=== PATIENT | female | born 1940 | race Caucasian/White ===

== ENCOUNTER 2018-05-08 16:32 | Inpatient (IN) ==
[2018-05-11] MEDS ORDERED: *HR* HYDROcodone/Acet 5/325 mg TABLET PO PRN (11:47)
--- NOTE | 2018-05-11 12:47 | Internal Med History&Physical ---
Date of Encounter: 05/11/18 Time of Encounter: 12:45 Assessment and Plan (1) CVA (cerebral vascular accident) Current visit: Yes Status: Acute PT/OT and ST to eval and treat. will follow progress. follow up with neuro as scheduled. continue ASA and statin. Qualifiers: CVA mechanism: unspecified Qualified Code(s): I63.9 - Cerebral infarction, unspecified (2) Right hand fracture Current visit: Yes Status: Acute cast intact. follow up with ortho as scheduled. Qualifiers: Encounter type: initial encounter Fracture type: closed Qualified Code(s) : S62.91XA - Unspecified fracture of right wrist and hand, initial encounter for closed fracture (3) Dementia Current visit: Yes Status: Acute assist with ADL's. therapy to eval congniton. Qualifiers: Dementia type: unspecified type Dementia behavioral disturbance: without behavioral disturbance Qualified Code(s): F03.90 - Unspecified dementia without behavioral disturbance Internal Medicine - H&P: HPI Admitted From: Intrahospital Transfer Plans for Post Hospital Care: Home History of present illness: Ms. Cast is a 77 year old female admitted to inpatient rehab unit for therapy s/p CVA and right hand fracture from fall. past medical history includes: TIA, dementia and recent UTI. plan to discharge to home with boyfriend. HPI unobtainable d/t confusion. hx of dementia. denies pain. Past Med Surg Social Fam HX - Past Medical History Medical history: no medical history Psychiatric history: no psych history - Past Surgical History Surgical History: no surgical history - Social History Smoking Status: Current every day smoker Smokeless Tobacco Status: No Alcohol use: none Drug use: none - Family History Mother Living Status: Internal Medicine - H&P: Meds Acetaminophen [Tylenol] 650 mg PO Q6HR PRN tablet 05/11/18 [Rx] Aspirin 81 mg PO DAILY tab.chew 05/11/18 [Rx] Atorvastatin [Lipitor] 20 mg PO HS tablet 05/11/18 [Rx] HYDROcodone/Acet 5/325 mg [[place] 5-325 mg] 1 tab PO Q6HR PRN 2 Days #8 tablet [Rx] 3 Allergy/AdvReac Type Severity Reaction Status Date / Time No Known Allergies Allergy Verified 05/04/18 18:08 ROS unobtainable: due to mental status All Systems PM: A 10-system review of systems was performed and is negative for pertinent findings except as documented above in the HPI. - Constitutional Constitutional: no chills, no fever(s), no night sweats - EENT Eyes: no change in vision, no discharge, no pain, no photophobia Ears: no ear discharge, no ear pain, no tinnitus Nose, mouth and throat: no dysphagia, no nasal discharge, no neck pain, no sore throat - Cardiovascular Cardiovascular ROS IM: no chest pain, no diaphoresis, no dyspnea, no lightheadedness, no palpitations, no syncope - Respiratory Respiratory: no cough, no dyspnea, no wheezing, no excessive phlegm production - Gastrointestinal Gastrointestinal: no abdominal pain, no diarrhea, no hematemesis, no hematochezia, no melena, no nausea, no vomiting - Genitourinary Genitourinary: no change in urinary stream, no dysuria, no flank pain, no hematuria - Musculoskeletal Musculoskeletal ROS IM: no numbness, no tingling - Integumentary Integumentary IM: no rash, no unusual bruising - Neurological Neurological ROS: no confusion, no convulsions, no focal weakness, no numbness, no tingling, no tremor(s) - Hematologic/Lymphatic Hematologic/Lymphatic: no easy bruising - Constitutional Vitals: Temp Pulse Resp BP Pulse Ox 98.1 F 87 16 145/86 94 05/11/18 11:39 05/11/18 11:39 05/11/18 11:39 05/11/18 11:39 05/11/18 11:39 General appearance: Present: A&O X 1, pleasant, no acute distress - Head Head exam: Present: atraumatic, normocephalic - Eye Eye exam: Present: PERRL, conjuntiva pink, sclera anicteric Pupils: Present: PERRL - Neck Neck exam general surgery: Present: supple, trachea midline. Absent: lymphadenopathy - Respiratory Respiratory exam: Present: CTAB. Absent: accessory muscle use, rales, rhonchi, wheezes - Cardiovascular Cardiovascular exam: Present: RRR, +S1, +S2. Absent: diastolic murmur, gallop, rubs, systolic murmur - GI/Abdominal GI/Abdominal exam: Present: normal bowel sounds, soft, no peritoneal signs. Absent: distended, tenderness - Extremities Exam Extremities exam: Present: normal capillary refill, warm, radial pulses palpable and symmetrical. Absent: calf tenderness, cyanotic, pedal edema Additional comments: right wrist cast. - Neurological Exam Neurological exam: Present: CN II-XII intact, oriented X3, no focal deficits. Absent: pronater drift, facial droop, speech deficit - Skin Skin exam: Present: dry, intact
[2018-05-11] MEDS: *HR* Heparin 5,000 UNIT/ML VIAL SQ SCH (17:35)
[2018-05-12] MEDS: *HR* Heparin 5,000 UNIT/ML VIAL SQ SCH ×2 (04:49→18:24)
[2018-05-12 05:42] LABS: Basophils % 0.4 %; Eosinophils # 0.1 K/mcL (0.0-0.6); Eosinophils % 1.3 %; Hematocrit 40.1 % (35.3-44.9); Hemoglobin 13.7 g/dL (11.5-15.4); Immature Granulocytes % 0.2 % (0-4); Lymphocytes # 4.9 K/mcL (0.6-4.6); Lymphocytes % 51.2 %; Mean Corpuscular HGB Conc 34.2 g/dL (31.6-35.5); Mean Corpuscular Hemoglobin 29.8 pg (28.0-33.3); Mean Corpuscular Volume 87.4 fL (83.0-100.0); Neutrophils # 3.6 K/mcL (1.6-8.9); Platelet Count 230 K/mcL (140-400); Red Blood Count 4.59 M/mcL (3.82-4.97); Red Cell Distribution Width 12.8 % (11.5-14.5); Segmented Neutrophils % 36.9 %
[2018-05-12 05:43] LABS: INR 1.2; Prothrombin Time 13.2 Seconds (9.4-12.1)
[2018-05-12 05:46] LABS: Activated Partial Thrombo Time 34.8 Seconds (26.0-36.0)
[2018-05-12 05:57] LABS: BUN/Creatinine Ratio 20 (6-26); Blood Urea Nitrogen 17 mg/dL (8-23); Calcium 9.4 mg/dL (8.6-10.3); Carbon Dioxide 28 mEq/L (23-29); Chloride 105 mEq/L (98-107); Glucose 141 mg/dL (70-105); Osmolality,Calculated 292 (280-300); Potassium 3.5 mEq/L (3.5-5.1); Sodium 139 mEq/L (136-145); eGFR For African Americans > 60 (> 60); eGFR For Non-African Americans > 60 (> 60)
[2018-05-12] MEDS: Acetaminophen 325 MG TABLET PO PRN (10:19)
[2018-05-12] MEDS: Aspirin 81 MG TAB.CHEW PO SCH (10:19)
--- NOTE | 2018-05-12 12:50 | Internal Med Progress Note ---
Date of Encounter: 05/12/18 Time of Encounter: 12:48 - Assessment and plan (1) CVA (cerebral vascular accident) Current Visit: Yes Status: Acute Assessment and plan: no new neuro deficits. continue statin and ASA. f/u with neuro. Qualifiers: CVA mechanism: unspecified Qualified Code(s): I63.9 - Cerebral infarction, unspecified (2) Right hand fracture Current Visit: Yes Status: Acute Assessment and plan: continue cast. follow up with ortho. Qualifiers: Encounter type: initial encounter Fracture type: closed Qualified Code(s) : S62.91XA - Unspecified fracture of right wrist and hand, initial encounter for closed fracture (3) Dementia Current Visit: Yes Status: Acute Assessment and plan: assist with ADL's as necesary. Qualifiers: Dementia type: unspecified type Dementia behavioral disturbance: without behavioral disturbance Qualified Code(s): F03.90 - Unspecified dementia without behavioral disturbance - Time Spent With Patient less than 15 minutes - Subjective Interval history: pt confused, unable to participate in HPI. cooperative and participating with therapy. denies pain. - Constitutional Vitals: Temp Pulse Resp BP Pulse Ox 97.9 F 63 16 143/74 97 05/12/18 07:12 05/12/18 07:12 05/12/18 07:12 05/12/18 07:12 05/12/18 07:12 General appearance: Present: A&O X 1, pleasant, no acute distress - Head Head exam: Present: atraumatic, normocephalic - Eye Eye exam: Present: PERRL, conjuntiva pink, sclera anicteric Pupils: Present: PERRL - Neck Neck exam general surgery: Present: supple, trachea midline. Absent: lymphadenopathy - Respiratory Respiratory exam: Present: CTAB. Absent: accessory muscle use, rales, rhonchi, wheezes - Cardiovascular Cardiovascular exam: Present: RRR, +S1, +S2. Absent: diastolic murmur, gallop, rubs, systolic murmur - GI/Abdominal GI/Abdominal exam: Present: normal bowel sounds, soft, no peritoneal signs. Absent: distended, tenderness - Extremities Exam Extremities exam: Present: normal capillary refill, warm, radial pulses palpable and symmetrical. Absent: calf tenderness, cyanotic, pedal edema Additional comments: right wrist cast - Neurological Exam Neurological exam: Present: CN II-XII intact, oriented X3, no focal deficits. Absent: pronater drift, facial droop, speech deficit - Skin Skin exam: Present: dry, intact Internal Medicine: Result - Labs CBC & Chem 7: 05/12/18 05:05 05/12/18 05:05 Labs: Short CBC 05/12/18 Range/Units 05:05 WBC 9.6 (4.3-11.1) K/mcL Hgb 13.7 (11.5-15.4) g/dL Hct 40.1 (35.3-44.9) % Plt Count 230 (140-400) K/mcL Neutrophils # 3.6 (1.6-8.9) K/mcL BMP 05/12/18 05:05 Sodium 139 Potassium 3.5 Chloride 105 Carbon Dioxide 28 BUN 17 Creatinine 0.83 Glucose 141 H Calcium 9.4 - ABG Interpretation ABG results: PT/INR, D-dimer PT 13.2 Seconds (9.4-12.1) H 05/12/18 05:05 Consult Discharge Plan - Plan Referrals: Sandy Scott MD [Primary Care Provider] -
[2018-05-12 21:11] LABS: Bilirubin,Urine Negative (Negative); Blood,Urine Negative (Negative); Clarity,Urine Clear (Clear); Color,Urine Yellow (Yellow); Glucose,Urine (UA) 100 mg/dL (Normal); Ketones,Urine Trace mg/dL (Negative); Leukocyte Esterase,Urine Small (Negative); Nitrite,Urine Negative (Negative); PH,Urine 5.5 pH Units (5.0-8.0); Protein,Urine Negative (Neg-Trace); Urobilinogen,Urine Normal (Normal)
[2018-05-12 21:33] LABS: RBC,Urine 0-3 per hpf (0-3); WBC,Urine 30-50 per hpf (0-3)
[2018-05-12 21:34] LABS: Bacteria,Urine Few per hpf (None-Few); Squamous Epithelial Cell,Urine Many per lpf (None-Few); Transitional Epi Cells,Urine Many per hpf (None-Few); Yeast,Urine Many per hpf (None Seen)
[2018-05-13] MEDS: Aspirin 81 MG TAB.CHEW PO SCH (09:40)
[2018-05-13] MEDS: *HR* Heparin 5,000 UNIT/ML VIAL SQ SCH ×2 (09:40→20:22)
--- NOTE | 2018-05-13 14:28 | Internal Med Progress Note ---
Date of Encounter: 05/13/18 Time of Encounter: 14:21 - Assessment and plan (1) Right hand fracture Current Visit: Yes Status: Acute Assessment and plan: No acute issues at this time. Cast in place which remains dry and intact. Distal cardiovascular checks within normal limits. Patient denies any current discomforts. Qualifiers: Encounter type: initial encounter Fracture type: closed Qualified Code(s) : S62.91XA - Unspecified fracture of right wrist and hand, initial encounter for closed fracture (2) Dementia Current Visit: Yes Status: Acute Assessment and plan: Patient remains confused oriented to name only. Patient has been cooperative with care. Patient able to answer simple questions appropriately, but becomes confused with complex directions or complexed questioning. We will continue with current medications and plan of care Qualifiers: Dementia type: unspecified type Dementia behavioral disturbance: without behavioral disturbance Qualified Code(s): F03.90 - Unspecified dementia without behavioral disturbance (3) UTI (urinary tract infection) Current Visit: Yes Status: Acute Assessment and plan: Urinalysis was evaluated which showed only a yeast infection. No culture indicated. We will start on Diflucan 200 mg for 3 days. Qualifiers: Urinary tract infection type: site unspecified Hematuria presence: without hematuria Qualified Code(s): N39.0 - Urinary tract infection, site not specified (4) CVA (cerebral vascular accident) Current Visit: Yes Status: Acute Assessment and plan: No acute issues at this time. No focal neurological deficits noted on exam. Patient does remain confused with possible history of dementia. We will continue with current medications and continue to monitor closely. Qualifiers: CVA mechanism: unspecified Qualified Code(s): I63.9 - Cerebral infarction, unspecified - Time Spent With Patient less than 15 minutes - Subjective Interval history: Patient appears relaxed and currently denies any discomforts or shortness of breath. Patient poor historian due to her dementia. Patient is oriented to name only. Patient unable to answer simple questions appropriately but is confused with complex questioning or corrections. - Constitutional Vitals: Temp Pulse Resp BP Pulse Ox 97.6 F 48 16 128/70 98 05/13/18 09:00 05/13/18 09:00 05/13/18 09:00 05/13/18 09:00 05/13/18 09:00 General appearance: Present: A&O X 1, pleasant, no acute distress Exam: Oriented to name only. Patient noted be confused with complex questioning or complex directions - Head Head exam: Present: atraumatic, normocephalic - Eye Eye exam: Present: PERRL, conjuntiva pink, sclera anicteric Pupils: Present: PERRL - Neck Neck exam general surgery: Present: supple, trachea midline. Absent: lymphadenopathy - Respiratory Respiratory exam: Present: CTAB. Absent: accessory muscle use, rales, rhonchi, wheezes - Cardiovascular Cardiovascular exam: Present: RRR, +S1, +S2. Absent: diastolic murmur, gallop, rubs, systolic murmur - GI/Abdominal GI/Abdominal exam: Present: normal bowel sounds, soft, no peritoneal signs. Absent: distended, tenderness - Extremities Exam Extremities exam: Present: warm, radial pulses palpable and symmetrical. Absent : calf tenderness, cyanotic, pedal edema Additional comments: Right wrist with cast in place. Distal CV check within normal limits - Neurological Exam Neurological exam: Present: CN II-XII intact, no focal deficits. Absent: pronater drift, facial droop, speech deficit Additional comments: Patient remains confused oriented to name only. Patient able to answer simple questions appropriately. Speech is clear. No focal neurological deficits noted on exam. - Skin Skin exam: Present: dry, intact Internal Medicine: Result - Labs CBC & Chem 7: 05/12/18 05:05 05/12/18 05:05 Labs: Urine 05/12/18 Range/Units 20:50 Urine Color Yellow (Yellow) Urine Clarity Clear (Clear) Urine pH 5.5 (5.0-8.0) pH Units Ur Specific [place] 1.020 (1.010-1.025) Urine Protein Negative (Neg-Trace) mg/dL Urine Glucose (UA) 100 H (Normal) mg/dL - ABG Interpretation ABG results: PT/INR, D-dimer PT 13.2 Seconds (9.4-12.1) H 05/12/18 05:05 Consult Discharge Plan - Plan Referrals: Sandy Scott MD [Primary Care Provider] -
--- NOTE | 2018-05-14 10:29 | Internal Med Progress Note ---
Date of Encounter: 05/14/18 Time of Encounter: 10:18 - Assessment and plan (1) Right hand fracture Current Visit: Yes Status: Acute Assessment and plan: No acute issues at this time. Cast in place which remains dry and intact. Distal cardiovascular checks within normal limits. Patient denies any current discomforts. Qualifiers: Encounter type: initial encounter Fracture type: closed Qualified Code(s) : S62.91XA - Unspecified fracture of right wrist and hand, initial encounter for closed fracture (2) Dementia Current Visit: Yes Status: Acute Assessment and plan: Patient remains confused oriented to name only. Patient has been cooperative with care. Patient able to answer simple questions appropriately, but becomes confused with complex directions or complexed questioning. We will continue with current medications and plan of care. Patient reportedly had not been sleeping at night. Patient reportedly slept last night after starting on Seroquel. We will continue to monitor patient's mentation after she experiences adequate sleep. Qualifiers: Dementia type: unspecified type Dementia behavioral disturbance: without behavioral disturbance Qualified Code(s): F03.90 - Unspecified dementia without behavioral disturbance (3) CVA (cerebral vascular accident) Current Visit: Yes Status: Acute Assessment and plan: No acute issues at this time. No focal neurological deficits noted on exam. Patient does remain confused with possible history of dementia. We will continue with current medications and continue to monitor closely. Qualifiers: CVA mechanism: unspecified Qualified Code(s): I63.9 - Cerebral infarction, unspecified - Time Spent With Patient less than 15 minutes - Subjective Interval history: Patient appears relaxed and currently denies any discomforts or shortness of breath. Patient poor historian due to her dementia. Patient is oriented to name only. Patient unable to answer simple questions appropriately but is confused with complex questioning or corrections. Patient started on at bedtime Seroquel and reportedly slept last night with no reports of behavior issues. - Constitutional Vitals: Temp Pulse Resp BP Pulse Ox 97.5 F L 72 16 127/75 98 05/14/18 08:54 05/14/18 08:54 05/14/18 08:54 05/14/18 08:54 05/14/18 08:54 General appearance: Present: A&O X 1, pleasant, no acute distress - Head Head exam: Present: atraumatic, normocephalic - Eye Eye exam: Present: PERRL, conjuntiva pink, sclera anicteric Pupils: Present: PERRL - Neck Neck exam general surgery: Present: supple, trachea midline. Absent: lymphadenopathy - Respiratory Respiratory exam: Present: CTAB. Absent: accessory muscle use, rales, rhonchi, wheezes - Cardiovascular Cardiovascular exam: Present: RRR, +S1, +S2. Absent: diastolic murmur, gallop, rubs, systolic murmur - GI/Abdominal GI/Abdominal exam: Present: normal bowel sounds, soft, no peritoneal signs. Absent: distended, tenderness - Extremities Exam Extremities exam: Present: warm, radial pulses palpable and symmetrical. Absent : calf tenderness, cyanotic, pedal edema Additional comments: Right wrist remains a cast which is dry and intact. Distal capillary refill less than 3 seconds. Hand is warm - Neurological Exam Neurological exam: Present: CN II-XII intact, oriented X3, no focal deficits. Absent: pronater drift, facial droop, speech deficit - Skin Skin exam: Present: dry, intact Internal Medicine: Result - Labs CBC & Chem 7: 05/12/18 05:05 05/12/18 05:05 - ABG Interpretation ABG results: PT/INR, D-dimer PT 13.2 Seconds (9.4-12.1) H 05/12/18 05:05 Consult Discharge Plan - Plan Referrals: Sandy Scott MD [Primary Care Provider] -
[2018-05-14] MEDS: *HR* Heparin 5,000 UNIT/ML VIAL SQ SCH ×2 (11:49→18:21)
[2018-05-14] MEDS: Aspirin 81 MG TAB.CHEW PO SCH (11:49)
[2018-05-14] MEDS: Fluconazole 100 MG TABLET PO SCH (11:50)
[2018-05-14 13:11] LABS: Hematocrit 41.3 % (35.3-44.9); Hemoglobin 13.9 g/dL (11.5-15.4); Mean Corpuscular HGB Conc 33.7 g/dL (31.6-35.5); Mean Corpuscular Hemoglobin 29.9 pg (28.0-33.3); Mean Corpuscular Volume 88.8 fL (83.0-100.0); Mean Platelet Volume 10.5 fL (9.4-12.4); Platelet Count 236 K/mcL (140-400); Red Blood Count 4.65 M/mcL (3.82-4.97); Red Cell Distribution Width 12.9 % (11.5-14.5)
[2018-05-14 13:23] LABS: BUN/Creatinine Ratio 23 (6-26); Blood Urea Nitrogen 20 mg/dL (8-23); Calcium 9.7 mg/dL (8.6-10.3); Carbon Dioxide 31 mEq/L (23-29); Chloride 104 mEq/L (98-107); Glucose 188 mg/dL (70-105); Osmolality,Calculated 294 (280-300); Potassium 4.1 mEq/L (3.5-5.1); Sodium 138 mEq/L (136-145); eGFR For African Americans > 60 (> 60); eGFR For Non-African Americans > 60 (> 60)
[2018-05-14 13:41] LABS: Thyroid Stimulating Hormone 1.859 mcIU/mL (0.340-5.600)
[2018-05-14 19:59] LABS: Estimated Average Glucose 146 mg/dl; Hemoglobin A1C 6.7 %
[2018-05-15] MEDS: *HR* Heparin 5,000 UNIT/ML VIAL SQ SCH ×2 (06:43→20:46)
[2018-05-15] MEDS: Aspirin 81 MG TAB.CHEW PO SCH (10:20)
[2018-05-15] MEDS: Acetaminophen 325 MG TABLET PO PRN (10:20)
[2018-05-15] MEDS: Fluconazole 100 MG TABLET PO SCH (10:20)
--- NOTE | 2018-05-15 10:48 | Internal Med Progress Note ---
Date of Encounter: 05/15/18 Time of Encounter: 10:46 - Assessment and plan (1) Right hand fracture Current Visit: Yes Status: Acute Assessment and plan: No acute issues at this time. Cast in place which remains dry and intact. Distal cardiovascular checks within normal limits. Patient denies any current discomforts. Qualifiers: Encounter type: initial encounter Fracture type: closed Qualified Code(s) : S62.91XA - Unspecified fracture of right wrist and hand, initial encounter for closed fracture (2) Dementia Current Visit: Yes Status: Acute Assessment and plan: Patient remains confused oriented to name only. Patient has been cooperative with care. Patient able to answer simple questions appropriately, but becomes confused with complex directions or complexed questioning. We will continue with current medications and plan of care. Patient reportedly had not been sleeping at night. Patient reportedly has slept during the last 15 night after starting on Seroquel, but remains confused during the day. We will continue to monitor patient's mentation after she experiences adequate sleep. Qualifiers: Dementia type: unspecified type Dementia behavioral disturbance: without behavioral disturbance Qualified Code(s): F03.90 - Unspecified dementia without behavioral disturbance (3) CVA (cerebral vascular accident) Current Visit: Yes Status: Acute Assessment and plan: No acute issues at this time. No focal neurological deficits noted on exam. Patient does remain confused with possible history of dementia. We will continue with current medications and continue to monitor closely. Qualifiers: CVA mechanism: unspecified Qualified Code(s): I63.9 - Cerebral infarction, unspecified - Time Spent With Patient less than 15 minutes - Subjective Interval history: Patient appears relaxed and currently denies any discomforts or shortness of breath. Patient poor historian due to her dementia. Patient is oriented to name only. Patient unable to answer simple questions appropriately but is confused with complex questioning or corrections. Patient started on at bedtime Seroquel two days ago and reportedlyhas been sleeping at night with no reports of behavior issues. During the day she continues with her confusion. - Constitutional Vitals: Temp Pulse Resp BP Pulse Ox 97.4 F L 56 16 137/73 97 05/15/18 08:04 05/15/18 08:04 05/14/18 20:10 05/15/18 08:04 05/15/18 08:04 General appearance: Present: A&O X 1, pleasant, no acute distress Exam: Patient oriented to name only. Patient able to answer simple questions appropriately but comes confused with complex questioning or complex directions. - Head Head exam: Present: atraumatic, normocephalic - Eye Eye exam: Present: PERRL, conjuntiva pink, sclera anicteric Pupils: Present: PERRL - Neck Neck exam general surgery: Present: supple, trachea midline. Absent: lymphadenopathy - Respiratory Respiratory exam: Present: CTAB. Absent: accessory muscle use, rales, rhonchi, wheezes - Cardiovascular Cardiovascular exam: Present: RRR, +S1, +S2. Absent: diastolic murmur, gallop, rubs, systolic murmur - GI/Abdominal GI/Abdominal exam: Present: normal bowel sounds, soft, no peritoneal signs. Absent: distended, tenderness - Extremities Exam Extremities exam: Present: warm, radial pulses palpable and symmetrical. Absent : calf tenderness, cyanotic, pedal edema Additional comments: Right wrist and hand with cast in place dry and intact. Distal cardiovascular checks within normal limits - Neurological Exam Neurological exam: Present: CN II-XII intact, oriented X3, no focal deficits. Absent: pronater drift, facial droop, speech deficit - Skin Skin exam: Present: dry, intact Internal Medicine: Result - Labs CBC & Chem 7: 05/14/18 13:03 05/14/18 13:03 Labs: Short CBC 05/14/18 Range/Units 13:03 WBC 7.7 (4.3-11.1) K/mcL Hgb 13.9 (11.5-15.4) g/dL Hct 41.3 (35.3-44.9) % Plt Count 236 (140-400) K/mcL [facility] 05/14/18 13:03 Sodium 138 Potassium 4.1 Chloride 104 Carbon Dioxide 31 H BUN 20 Creatinine 0.86 Glucose 188 H Calcium 9.7 - ABG Interpretation ABG results: PT/INR, D-dimer PT 13.2 Seconds (9.4-12.1) H 05/12/18 05:05 Consult Discharge Plan - Plan Referrals: Sandy Scott MD [Primary Care Provider] -
[2018-05-16] MEDS: *HR* Heparin 5,000 UNIT/ML VIAL SQ SCH ×2 (06:48→17:36)
[2018-05-16] MEDS: Fluconazole 100 MG TABLET PO SCH (06:49)
[2018-05-16] MEDS: Aspirin 81 MG TAB.CHEW PO SCH (06:50)
[2018-05-16] MEDS ORDERED: Haloperidol Lactate 5 MG/ML VIAL IM ONE (19:11)
--- NOTE | 2018-05-16 19:19 | Internal Med Progress Note ---
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 CVA in the past Appears to be encephalopathic on dementia Only oriented to self Seroquel appears to have sedated the patient, has been sleeping most of the morning Starting Celexa at 10 mg for mild behavioral disturbances Patient will have 0.5 mg Haldol IM once is severely agitated or violent -Nursing instructed to call physician if they administer Haldol Discontinuation of Diflucan to avoid QT prolonging medications; patient had at least 1-2 doses for suspected yeast infection Qualifiers: Dementia type: unspecified type Dementia behavioral disturbance: without behavioral disturbance Qualified Code(s): F03.90 - Unspecified dementia without behavioral disturbance (3) CVA (cerebral vascular accident) Current Visit: Yes Status: Acute Assessment and plan: No focal neurological deficits on examination today. Patient alert and oriented to self only, and the history of dementia. Continue to monitor, continue aspirin and statin Qualifiers: CVA mechanism: unspecified Qualified Code(s): I63.9 - Cerebral infarction, unspecified - Time Spent With Patient less than 15 minutes - Subjective Interval history: Patient pleasantly confused, did have some agitation during the day. She was noted to be sleeping in the alas. She is directable, and was able to stay in her chair when she was told to do so unable to obtain review of systems - Constitutional Vitals: Temp Pulse Resp BP Pulse Ox 97.3 F L 87 16 164/88 98 05/16/18 07:53 05/16/18 07:53 05/15/18 21:00 05/16/18 07:53 05/16/18 07:53 General appearance: Present: A&O X 1, no acute distress - Head Head exam: Present: atraumatic, normocephalic - Eye Eye exam: Present: PERRL, conjuntiva pink, sclera anicteric Pupils: Present: PERRL - Neck Neck exam general surgery: Present: supple, trachea midline. Absent: lymphadenopathy - Respiratory Respiratory exam: Present: CTAB. Absent: accessory muscle use, rales, rhonchi, wheezes - Cardiovascular Cardiovascular exam: Present: RRR, +S1, +S2. Absent: diastolic murmur, gallop, rubs, systolic murmur - GI/Abdominal GI/Abdominal exam: Present: normal bowel sounds, soft, no peritoneal signs. Absent: distended, tenderness - Extremities Exam Extremities exam: Present: warm, radial pulses palpable and symmetrical. Absent : calf tenderness, cyanotic, pedal edema Additional comments: Right wrist and hands appears to be in a cast. Dry and intact. Able to move fingers. Pulses normal - Neurological Exam Neurological exam: Present: CN II-XII intact, oriented X3, no focal deficits. Absent: pronater drift, facial droop, speech deficit - Skin Skin exam: Present: dry, intact Internal Medicine: Result - Labs CBC & Chem 7: 05/14/18 13:03 05/14/18 13:03 - ABG Interpretation ABG results: PT/INR, D-dimer PT 13.2 Seconds (9.4-12.1) H 05/12/18 05:05 Consult Discharge Plan - Plan Referrals: Sandy Scott MD [Primary Care Provider] -
[2018-05-17] MEDS: *HR* Heparin 5,000 UNIT/ML VIAL SQ SCH ×2 (06:49→17:31)
[2018-05-17] MEDS: Aspirin 81 MG TAB.CHEW PO SCH (10:45)
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
[2018-05-18 06:06] LABS: Basophils # 0.1 K/mcL (0.0-0.2); Basophils % 0.6 %; Eosinophils # 0.2 K/mcL (0.0-0.6); Eosinophils % 1.5 %; Hematocrit 41.9 % (35.3-44.9); Hemoglobin 14.2 g/dL (11.5-15.4); Immature Granulocytes % 0.6 % (0-4); Lymphocytes # 5.5 K/mcL (0.6-4.6); Mean Corpuscular HGB Conc 33.9 g/dL (31.6-35.5); Mean Corpuscular Volume 88.4 fL (83.0-100.0); Mean Platelet Volume 10.6 fL (9.4-12.4); Monocytes # 0.9 K/mcL (0.0-1.3); Monocytes % 8.3 %; Neutrophils # 4.5 K/mcL (1.6-8.9); Platelet Count 285 K/mcL (140-400); Red Blood Count 4.74 M/mcL (3.82-4.97); Red Cell Distribution Width 12.9 % (11.5-14.5)
[2018-05-18 06:08] LABS: INR 1.1; Prothrombin Time 12.3 Seconds (9.4-12.1)
[2018-05-18 06:19] LABS: BUN/Creatinine Ratio 18 (6-26); Blood Urea Nitrogen 15 mg/dL (8-23); Calcium 9.5 mg/dL (8.6-10.3); Carbon Dioxide 30 mEq/L (23-29); Chloride 103 mEq/L (98-107); Glucose 137 mg/dL (70-105); Osmolality,Calculated 287 (280-300); Sodium 137 mEq/L (136-145); eGFR For African Americans > 60 (> 60); eGFR For Non-African Americans > 60 (> 60)
[2018-05-18] MEDS: Aspirin 81 MG TAB.CHEW PO SCH (07:57)
[2018-05-18] MEDS: *HR* Heparin 5,000 UNIT/ML VIAL SQ SCH ×2 (08:04→17:26)
--- NOTE | 2018-05-18 09:49 | Internal Med Progress Note ---
Date of Encounter: 05/18/18 Time of Encounter: 09:46 - Assessment and plan (1) CVA (cerebral vascular accident) Current Visit: Yes Status: Acute Assessment and plan: no new neuro deficits. continue statin and ASA. f/u with neuro. Qualifiers: CVA mechanism: unspecified Qualified Code(s): I63.9 - Cerebral infarction, unspecified (2) Right hand fracture Current Visit: Yes Status: Acute Assessment and plan: continue cast. cast Coming unwrapped. Patient to see ortho Qualifiers: Encounter type: initial encounter Fracture type: closed Qualified Code(s) : S62.91XA - Unspecified fracture of right wrist and hand, initial encounter for closed fracture (3) Dementia Current Visit: Yes Status: Acute Assessment and plan: assist with ADL's as necesary. Qualifiers: Dementia type: unspecified type Dementia behavioral disturbance: without behavioral disturbance Qualified Code(s): F03.90 - Unspecified dementia without behavioral disturbance - Time Spent With Patient 25 - 35 minutes - Subjective Interval history: pt confused, unable to participate in HPI. cooperative and participating with therapy. Wondering around on the unit. denies pain. - Constitutional Vitals: Temp Pulse Resp BP Pulse Ox 97.6 F 58 15 139/74 95 05/18/18 07:29 05/18/18 07:29 05/18/18 07:29 05/18/18 07:29 05/18/18 07:29 General appearance: Present: A&O X 1, no acute distress - Head Head exam: Present: atraumatic, normocephalic - Eye Eye exam: Present: PERRL, conjuntiva pink, sclera anicteric Pupils: Present: PERRL - Neck Neck exam general surgery: Present: supple, trachea midline. Absent: lymphadenopathy - Respiratory Respiratory exam: Present: CTAB. Absent: accessory muscle use, rales, rhonchi, wheezes - Cardiovascular Cardiovascular exam: Present: RRR, +S1, +S2. Absent: diastolic murmur, gallop, rubs, systolic murmur - GI/Abdominal GI/Abdominal exam: Present: normal bowel sounds, soft, no peritoneal signs. Absent: distended, tenderness - Extremities Exam Extremities exam: Present: warm, radial pulses palpable and symmetrical. Absent : calf tenderness, cyanotic, pedal edema Additional comments: Right wrist in cast. Capillary refill normal. Coming unwrapped around fingers. - Neurological Exam Neurological exam: Present: CN II-XII intact, oriented X3, no focal deficits. Absent: pronater drift, facial droop, speech deficit - Skin Skin exam: Present: dry, intact Internal Medicine: Result - Labs CBC & Chem 7: 05/18/18 05:45 05/18/18 05:45 Labs: Short CBC 05/18/18 Range/Units 05:45 WBC 11.3 H (4.3-11.1) K/mcL Hgb 14.2 (11.5-15.4) g/dL Hct 41.9 (35.3-44.9) % Plt Count 285 (140-400) K/mcL Neutrophils # 4.5 (1.6-8.9) K/mcL BMP 05/18/18 05:45 Sodium 137 Potassium 4.0 Chloride 103 Carbon Dioxide 30 H BUN 15 Creatinine 0.85 Glucose 137 H Calcium 9.5 - ABG Interpretation ABG results: PT/INR, D-dimer PT 12.3 Seconds (9.4-12.1) H 05/18/18 05:45 Consult Discharge Plan - Plan Referrals: Sandy Scott MD [Primary Care Provider] -
[2018-05-19] MEDS: *HR* Heparin 5,000 UNIT/ML VIAL SQ SCH ×2 (06:52→18:10)
[2018-05-19] MEDS: Aspirin 81 MG TAB.CHEW PO SCH (08:07)
--- NOTE | 2018-05-19 10:41 | Internal Med Progress Note ---
Date of Encounter: 05/19/18 Time of Encounter: 10:40 - Assessment and plan (1) CVA (cerebral vascular accident) Current Visit: Yes Status: Acute Assessment and plan: no new neuro deficits. continue statin and ASA. f/u with neuro. Qualifiers: CVA mechanism: unspecified Qualified Code(s): I63.9 - Cerebral infarction, unspecified (2) Right hand fracture Current Visit: Yes Status: Acute Assessment and plan: continue cast. Patient to see ortho on fri Qualifiers: Encounter type: initial encounter Fracture type: closed Qualified Code(s) : S62.91XA - Unspecified fracture of right wrist and hand, initial encounter for closed fracture (3) Dementia Current Visit: Yes Status: Acute Assessment and plan: assist with ADL's as necesary. Qualifiers: Dementia type: unspecified type Dementia behavioral disturbance: without behavioral disturbance Qualified Code(s): F03.90 - Unspecified dementia without behavioral disturbance - Subjective Interval history: pt confused, unable to participate in HPI. cooperative and participating with therapy. Wondering around on the unit. denies pain. - Constitutional Vitals: Temp Pulse Resp BP Pulse Ox 97.4 F L 57 17 143/73 95 05/19/18 07:34 05/19/18 07:34 05/18/18 18:39 05/19/18 07:34 05/19/18 07:34 General appearance: Present: A&O X 1, no acute distress - Head Head exam: Present: atraumatic, normocephalic - Eye Eye exam: Present: PERRL, conjuntiva pink, sclera anicteric Pupils: Present: PERRL - Neck Neck exam general surgery: Present: supple, trachea midline. Absent: lymphadenopathy - Respiratory Respiratory exam: Present: CTAB. Absent: accessory muscle use, rales, rhonchi, wheezes - Cardiovascular Cardiovascular exam: Present: RRR, +S1, +S2. Absent: diastolic murmur, gallop, rubs, systolic murmur - GI/Abdominal GI/Abdominal exam: Present: normal bowel sounds, soft, no peritoneal signs. Absent: distended, tenderness - Extremities Exam Extremities exam: Present: normal capillary refill, warm, radial pulses palpable and symmetrical. Absent: calf tenderness, cyanotic, pedal edema Additional comments: right wrist in cast - Neurological Exam Neurological exam: Present: CN II-XII intact, oriented X3, no focal deficits. Absent: pronater drift, facial droop, speech deficit - Skin Skin exam: Present: dry, intact Internal Medicine: Result - Labs CBC & Chem 7: 05/18/18 05:45 05/18/18 05:45 - ABG Interpretation ABG results: PT/INR, D-dimer PT 12.3 Seconds (9.4-12.1) H 05/18/18 05:45 Consult Discharge Plan - Plan Referrals: Sandy Scott MD [Primary Care Provider] -
[2018-05-20] MEDS: *HR* Heparin 5,000 UNIT/ML VIAL SQ SCH ×2 (04:56→18:03)
[2018-05-20] MEDS: Aspirin 81 MG TAB.CHEW PO SCH (08:12)
--- NOTE | 2018-05-20 10:13 | Internal Med Progress Note ---
Date of Encounter: 05/20/18 Time of Encounter: 10:12 - Assessment and plan (1) CVA (cerebral vascular accident) Current Visit: Yes Status: Acute Assessment and plan: no new neuro deficits. continue statin and ASA. f/u with neuro. Qualifiers: CVA mechanism: unspecified Qualified Code(s): I63.9 - Cerebral infarction, unspecified (2) Right hand fracture Current Visit: Yes Status: Acute Assessment and plan: continue cast. Patient to see ortho today. Qualifiers: Encounter type: initial encounter Fracture type: closed Qualified Code(s) : S62.91XA - Unspecified fracture of right wrist and hand, initial encounter for closed fracture (3) Dementia Current Visit: Yes Status: Acute Assessment and plan: assist with ADL's as necesary. oriented to person only. Qualifiers: Dementia type: unspecified type Dementia behavioral disturbance: without behavioral disturbance Qualified Code(s): F03.90 - Unspecified dementia without behavioral disturbance - Time Spent With Patient less than 15 minutes - Subjective Interval history: pt confused, unable to participate in HPI. cooperative and participating with therapy. Wondering around on the unit. denies pain. going with daughter for othro appt today. family to discuss discharge plan and possible ECF placement. - Constitutional Vitals: Temp Pulse Resp BP Pulse Ox 98.0 F 75 16 129/70 92 05/20/18 07:37 05/20/18 07:37 05/20/18 07:37 05/20/18 07:37 05/20/18 07:37 General appearance: Present: A&O X 1, no acute distress - Head Head exam: Present: atraumatic, normocephalic - Eye Eye exam: Present: PERRL, conjuntiva pink, sclera anicteric Pupils: Present: PERRL - Neck Neck exam general surgery: Present: supple, trachea midline. Absent: lymphadenopathy - Respiratory Respiratory exam: Present: CTAB. Absent: accessory muscle use, rales, rhonchi, wheezes - Cardiovascular Cardiovascular exam: Present: RRR, +S1, +S2. Absent: diastolic murmur, gallop, rubs, systolic murmur - GI/Abdominal GI/Abdominal exam: Present: normal bowel sounds, soft, no peritoneal signs. Absent: distended, tenderness - Extremities Exam Extremities exam: Present: normal capillary refill, warm, radial pulses palpable and symmetrical. Absent: calf tenderness, cyanotic, pedal edema Additional comments: right wrist in cast. - Neurological Exam Neurological exam: Present: CN II-XII intact, oriented X3, no focal deficits. Absent: pronater drift, facial droop, speech deficit - Skin Skin exam: Present: dry, intact Internal Medicine: Result - Labs CBC & Chem 7: 05/18/18 05:45 05/18/18 05:45 - ABG Interpretation ABG results: PT/INR, D-dimer PT 12.3 Seconds (9.4-12.1) H 05/18/18 05:45 Consult Discharge Plan - Plan Referrals: Sandy Scott MD [Primary Care Provider] - Esa Rush MD [Partnered Physician] -
[2018-05-20] MEDS: Acetaminophen 325 MG TABLET PO PRN (19:57)
[2018-05-21] MEDS: *HR* Heparin 5,000 UNIT/ML VIAL SQ SCH ×2 (05:20→17:51)
[2018-05-21] MEDS: Aspirin 81 MG TAB.CHEW PO SCH (08:54)
--- NOTE | 2018-05-21 14:04 | Internal Med Progress Note ---
Date of Encounter: 05/21/18 Time of Encounter: 14:02 - Assessment and plan (1) Right hand fracture Current Visit: Yes Status: Acute Assessment and plan: No acute issues at this time. Cast in place which remains dry and intact. Distal cardiovascular checks within normal limits. Patient denies any current discomforts. Qualifiers: Encounter type: subsequent encounter Fracture type: closed Fracture healing: with routine healing Qualified Code(s): S62.91XD - Unspecified fracture of right wrist and hand, subsequent encounter for fracture with routine healing (2) Dementia Current Visit: Yes Status: Acute Assessment and plan: Patient remains confused oriented to name only. Patient has been cooperative with care. Patient able to answer simple questions appropriately, but becomes confused with complex directions or complexed questioning. We will continue with current medications and plan of care. y. We will continue to monitor patient's mentation after she experiences adequate sleep. Qualifiers: Dementia type: unspecified type Dementia behavioral disturbance: without behavioral disturbance Qualified Code(s): F03.90 - Unspecified dementia without behavioral disturbance (3) CVA (cerebral vascular accident) Current Visit: Yes Status: Acute Assessment and plan: No acute issues at this time. No focal neurological deficits noted on exam. Patient does remain confused with possible history of dementia. We will continue with current medications and continue to monitor closely. Qualifiers: CVA mechanism: unspecified Qualified Code(s): I63.9 - Cerebral infarction, unspecified - Time Spent With Patient less than 15 minutes - Subjective Interval history: Patient appears relaxed and currently denies any discomforts or shortness of breath. Patient poor historian due to her dementia. Patient is oriented to name only. Patient unable to answer simple questions appropriately but is confused with complex questioning or corrections. Patient started on at bedtime Seroquel two days ago and reportedlyhas been sleeping at night with no reports of behavior issues. During the day she continues with her confusion. - Constitutional Vitals: Temp Pulse Resp BP Pulse Ox 98 F 59 16 174/79 94 05/21/18 07:52 05/21/18 07:52 05/21/18 07:52 05/21/18 07:52 05/21/18 07:52 General appearance: Present: A&O X 1, pleasant, no acute distress - Head Head exam: Present: atraumatic, normocephalic - Eye Eye exam: Present: PERRL, conjuntiva pink, sclera anicteric Pupils: Present: PERRL - Neck Neck exam general surgery: Present: supple, trachea midline. Absent: lymphadenopathy - Respiratory Respiratory exam: Present: CTAB. Absent: accessory muscle use, rales, rhonchi, wheezes - Cardiovascular Cardiovascular exam: Present: RRR, +S1, +S2. Absent: diastolic murmur, gallop, rubs, systolic murmur - GI/Abdominal GI/Abdominal exam: Present: normal bowel sounds, soft, no peritoneal signs. Absent: distended, tenderness - Extremities Exam Extremities exam: Present: warm, radial pulses palpable and symmetrical. Absent : calf tenderness, cyanotic, pedal edema Additional comments: Left forearm and wrist with cast dry and intact. Distal cardiovascular check shows capillary refill less than 3 seconds and fingers are warm to touch - Neurological Exam Neurological exam: Present: CN II-XII intact, oriented X3, no focal deficits. Absent: pronater drift, facial droop, speech deficit - Skin Skin exam: Present: dry, intact Internal Medicine: Result - Labs CBC & Chem 7: 05/18/18 05:45 05/18/18 05:45 - ABG Interpretation ABG results: PT/INR, D-dimer PT 12.3 Seconds (9.4-12.1) H 05/18/18 05:45 Consult Discharge Plan - Plan Referrals: Sandy Scott MD [Primary Care Provider] - Esa Rush MD [Partnered Physician] -
[2018-05-21 19:28] VITALS: BP 160/66
[2018-05-22] MEDS: Aspirin 81 MG TAB.CHEW PO SCH (08:28)
--- NOTE | 2018-05-22 12:07 | Discharge Summary ---
Orders not resulted at time of discharge: Pending orders 05/25/18 04:00 Activated Partial Thrombo Time [COAG] MO Basic Metabolic Panel MO Complete Blood Count [HEME] MO Prothrombin Time INR [COAG] MO 06/01/18 04:00 Activated Partial Thrombo Time [COAG] MO Basic Metabolic Panel MO Complete Blood Count [HEME] MO Prothrombin Time INR [COAG] MO 06/08/18 04:00 Activated Partial Thrombo Time [COAG] MO Basic Metabolic Panel MO Complete Blood Count [HEME] MO Prothrombin Time INR [COAG] MO 06/15/18 04:00 Activated Partial Thrombo Time [COAG] MO Basic Metabolic Panel MO Complete Blood Count [HEME] MO Prothrombin Time INR [COAG] MO 06/22/18 04:00 Activated Partial Thrombo Time [COAG] MO Basic Metabolic Panel MO Complete Blood Count [HEME] MO Prothrombin Time INR [COAG] MO Date of Encounter: 05/22/18 Time of Encounter: 12:04 - Discharge Diagnosis (1) Right hand fracture Priority: Primary Status: Acute Comments: Right forearm and wrist remain in cast, which appears dry and intact. Cast was recently changed out drained follow-up visit last week with orthopedic surgeon. Patient with planned surgical procedure as outpatient in the next few weeks. Distal cardiovascular checks remained within normal limits with capillary refill less than 3 seconds and fingertips remain warm to touch. Patient with no complaints of pain. Qualifiers: Encounter type: subsequent encounter Fracture type: closed Fracture healing: with routine healing Qualified Code(s): S62.91XD - Unspecified fracture of right wrist and hand, subsequent encounter for fracture with routine healing (2) Dementia Priority: Secondary Status: Chronic Comments: Patient was continued dementia with no behavior issues reported by staff. Patient has remained pleasant and cooperative during therapy. Patient remains oriented to name only. Patient to continue follow-up with PCP Qualifiers: Dementia type: unspecified type Dementia behavioral disturbance: without behavioral disturbance Qualified Code(s): F03.90 - Unspecified dementia without behavioral disturbance (3) CVA (cerebral vascular accident) Priority: Secondary Status: Chronic Comments: Patient with recent CVA with no residual neurological deficits noted on exam. Patient continues with dementia and confusion. We will continue with follow-up with PCP. Patient continue with home meds Qualifiers: CVA mechanism: unspecified Qualified Code(s): I63.9 - Cerebral infarction, unspecified Hospital course: Ms. Cast is a 77 year old female who was admitted to inpatient rehab unit for therapy s/p CVA and right hand fracture from fall. Past medical history includes: TIA, dementia and recent UTI. Patient was recently diagnosed with a small CVA, but no residual neurological deficits noted on exam. Patient continues with confusion with no behavior issues noted during her stay at this facility. Patient was medicated with Seroquel to promote sleep, with no changes noted in her mentation. Patient was cooperative dissipated and physical therapy, which should progressed well in. Patient's right wrist fracture remains in cast. Patient had follow-up during her stay at this facility with orthopedic surgeon who changed her cast during that visit. Cardiovascular checks to distal hand remain within normal limits. Patient remained without any complaints of pain during her stay. Patient did experience a yeast UTI which was treated with Diflucan. Currently patient remains afebrile. Patient being transferred to [facility] for further care and rehabilitation. Discharge discussed with: patient, family, nurse Time spent discussing smoking cessation with patient: 3 to 10 minutes - Time Spent with Patient Total time spent providing and/or coordinating discharge services: Less than 30 minutes - Discharge Medications Home Medications: Acetaminophen [Tylenol] 650 mg PO Q6HR PRN tablet 05/11/18 [Rx] Aspirin 81 mg PO DAILY tab.chew 05/11/18 [Rx] Atorvastatin [Lipitor] 20 mg PO HS tablet 05/11/18 [Rx] HYDROcodone/Acet 5/325 mg [[place] 5-325 mg] 1 tab PO Q6HR PRN 2 Days #8 tablet [Rx] Allergies/Adverse Reactions: 3 Allergy/AdvReac Type Severity Reaction Status Date / Time No Known Allergies Allergy Verified 05/04/18 18:08 Date of admission: 05/11/18 11:33 Primary care physician: Sandy Scott Consults: 05/11/18 11:41 Consult to Occupational Therapy [CONS] Routine Comment: Evaluate, develop and implement POC Reason for Consult: WEAKNESS S/P CVA Does patient have active BEDREST order?: No Is patient medically & hemodynamically stable?: Yes Patient assessed for mobility or mobilized this visit?: Yes Consult to Physical Medicine/Rehab [CONS] Routine Reason for Consult: S/P CVA Call Completed: No Consult to Physical Therapy [CONS] Routine Comment: Evaluate, develop and implement POC Reason for Consult: WEAKNESS S/P CVA Does patient have active BEDREST order?: No Is patient medically & hemodynamically stable?: Yes Patient assessed for mobility or mobilized this visit?: Yes Consult to Recreational Therapy [CONS] Routine Comment: Evaluate, develop and implement POC Consult to Fitness Trainer [CONS] Routine Reason for SW Consult: WEAKNESS S/P CVA Consult to Speech Therapy [CONS] Routine Comment: Evaluate, develop and implement POC Reason for Consult: S/P CVA Call Completed: Yes Discharging clinician: Dheeraj Mack - Constitutional Vitals: Temp Pulse Resp BP Pulse Ox 97.6 F 71 16 160/66 97 05/21/18 19:00 05/21/18 19:00 05/21/18 19:00 05/21/18 19:00 05/21/18 19:00 General appearance: Present: A&O X 1, pleasant, no acute distress Exam: Patient oriented to name only. Remains cooperative and appropriate with conversation. - Head Head exam: Present: atraumatic, normocephalic - Eye Eye exam: Present: PERRL, conjuntiva pink, sclera anicteric Pupils: Present: PERRL - Neck Neck exam general surgery: Present: supple, trachea midline. Absent: lymphadenopathy - Respiratory Respiratory exam: Present: CTAB. Absent: accessory muscle use, rales, rhonchi, wheezes - Cardiovascular Cardiovascular exam: Present: RRR, +S1, +S2. Absent: diastolic murmur, gallop, rubs, systolic murmur - GI/Abdominal GI/Abdominal exam: Present: normal bowel sounds, soft, no peritoneal signs. Absent: distended, tenderness - Extremities Exam Extremities exam: Present: warm, radial pulses palpable and symmetrical. Absent : calf tenderness, cyanotic, pedal edema Additional comments: Right forearm and wrist with cast in place. Distal cardiovascular check show fingers warm to touch with capillary refill less than 3 seconds. Patient denies numbness - Neurological Exam Neurological exam: Present: CN II-XII intact, oriented X3, no focal deficits. Absent: pronater drift, facial droop, speech deficit - Skin Skin exam: Present: dry, intact - Patient Status Disposition: Transfer SNF Condition: Good Functional capacity at discharge: independent ambulation Overall status at discharge: patient is progressing back to baseline - Discharge Instructions Follow Up With: Sandy Scott MD [Primary Care Provider] - Esa Rush MD [Partnered Physician] - - Diet and Activity Activity: as per physical therapy, increase activity as tolerated
--- NOTE | 2018-05-22 12:15 | Physician Discharge Referral ---
[facility] Referral Info Provider in Charge after Transfer: PCP Institutional Level of Care: Skilled - Diagnosis (1) Right hand fracture Priority: Primary Status: Acute (2) Dementia Priority: Secondary Status: Chronic (3) CVA (cerebral vascular accident) Priority: Secondary Status: Acute Prognosis: Good Aware of Diagnosis: Family Aware of Prognosis: Family - Transfer Medications Home Medications: Acetaminophen [Tylenol] 650 mg PO Q6HR PRN tablet 05/11/18 [Rx] Aspirin 81 mg PO DAILY tab.chew 05/11/18 [Rx] Atorvastatin [Lipitor] 20 mg PO HS tablet 05/11/18 [Rx] HYDROcodone/Acet 5/325 mg [[place] 5-325 mg] 1 tab PO Q6HR PRN 2 Days #8 tablet [Rx] Allergies/Adverse Reactions: 3 Allergy/AdvReac Type Severity Reaction Status Date / Time No Known Allergies Allergy Verified 05/04/18 18:08 - Respiratory Orders Smoking Cessation: Smoking cessation has been advised. For more information, call the [place] Tobacco Quit Line at 5-553-TNZT-NOW. - Lab Orders Lab Orders: 2 Step [place] Test per State regulation, CBC, U/A, Andres 17, CXR yearly - Ancillary Orders May use pressure relief devices daily prn, May go on DEWEY w/family/respon democrat w /meds at nurse discretion PRN, May consult with Dentist, Grocery Department Manager, Textile Supervisor PRN - Mobility Orders Ambulate - Rehabiliation Orders Rehab Potential: Good Rehab Orders: ROM Exercises, Evaluation for Physical Therapy, Evaluation for Occupational Therapy - Treatments Skin tear care topically daily PRN per policy, May check for fecal impaction rectally daily PRN, Fleet enema rectally every other day PRN cleansing purposes - Diet Orders Regular CERTIFICATION: I certify that the transfer of the above named patient to an Extended Care Facility is necessary for the continuing treatment of the diagnosis listed. The above information is true and accurate reflection of patient's current condition. Confidential - Redisclosure prohibited without a patient's written consent.
[2018-05-22] MEDS: *HR* Heparin 5,000 UNIT/ML VIAL SQ SCH (12:26)
== END 2018-05-22 14:08 | DRG 560 ==
LOC: INPGRE 05-11 11:33